=== PATIENT | male | born 1980 ===

== ENCOUNTER 2017-08-24 20:39 | Emergency (ER) | payer MEDICAID ==
[2017-08-24 20:57] VITALS: BP 147/76; PULSE 107; RESP 16; TEMP 97.9; O2SAT 98
--- NOTE | 2017-08-24 21:09 | ED PDOC ---
HPI: Back Time Seen by Provider: 08/24/17 20:42 Chief Complaint (Nursing): Back Pain Chief Complaint (Provider): Back Pain History Per: Patient History/Exam Limitations: no limitations Current Symptoms Are (Timing): Still Present Additional Complaint(s): 36 y/o male presents to the emergency department with a complaint of a constant lower middle back pain that radiates down to the right groin area, right testicular pain, and right leg numbness x5 days. 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 Reports taking Ibuprofen 600 mg at 6 am without the relief of symptoms. Denies history of kidney stones, experiencing similar symptoms in the past, abdominal pain, burning sensation or blood in urine, nausea, penile discharge, penile pain, fever, chills, and bowel or bladder incontinence. Past Medical History Reviewed: Historical Data, Nursing Documentation, Vital Signs Vital Signs: Last Vital Signs Temp 97.9 F 08/24/17 20:55 Pulse 107 H 08/24/17 20:55 Resp 16 08/24/17 20:55 BP 147/76 08/24/17 20:55 Pulse Ox 98 08/24/17 20:55 - Medical History PMH: Asthma - Surgical History Surgical History: No Surg Hx - Family History Family History: States: Unknown Family Hx - Social History Current smoker - smoking cessation education provided: No Alcohol: Social Drugs: Cannabis - Immunization History Hx Tetanus Toxoid Vaccination: No Hx Influenza Vaccination: No Hx Pneumococcal Vaccination: No - Home Medications Home Medications: Ambulatory Orders Medication Instructions Recorded Ibuprofen [Motrin] 600 mg PO Q6H #30 tab 12/14/16 Cyclobenzaprine [Cyclobenzaprine 10 mg PO TID #20 tab 08/24/17 HCl] Ibuprofen [Motrin] 600 mg PO Q6 #20 tab 08/24/17 - Allergies Allergies/Adverse Reactions: Allergies Allergy/AdvReac Type Severity Reaction Status Date / Time No Known Allergies Allergy Verified 12/14/16 05:00 Review of Systems ROS Statement: Except As Marked, All Systems Reviewed And Found Negative (As per HPI, otherwise negative) Constitutional: Negative for: Fever, Chills Gastrointestinal: Negative for: Abdominal Pain Genitourinary Male: Positive for: Other (Right groin region with right testicular pain). Negative for: Dysuria, Incontinence (No bowel or bladder incontinence ), Hematuria, Penile Discharge, Penile Pain Musculoskeletal: Positive for: Back Pain (Lower middle region) Neurological: Positive for: Numbness (of the right leg) Physical Exam - Reviewed Nursing Documentation Reviewed: Yes Vital Signs Reviewed: Yes - Physical Exam Appears: Positive for: Non-toxic, No Acute Distress Head Exam: Positive for: ATRAUMATIC, NORMAL INSPECTION, NORMOCEPHALIC Skin: Positive for: Normal Color, Warm, Dry Male Genital Exam: Positive for: normal genitalia, inguinal tenderness. Negative for: epididymal tenderness, hernia mass, lesions, scrotum tenderness (R ), testicular tenderness (R), urethral discharge Back: Positive for: Other (Lumbar midline tenderness and paraspinal tenderness) . Negative for: Normal Inspection Neurologic/Psych: Positive for: Alert, Oriented (x3) - Laboratory Results Result Diagrams: 08/24/17 21:41 08/24/17 21:41 - ECG O2 Sat by Pulse Oximetry: 98 (RA) Pulse Ox Interpretation: Normal Medical Decision Making Medical Decision Making: Time: 2104 Initial impression: Lower back pain and testicular pain rule out renal colic vs epididymitis vs back pain Initial plan: --Urinalysis --Toradol 30 mg --CBC w/ diff --CMP --Renal Protocol CT --Abd & Pelvis CT --Testicular US --Reevaluation IMPRESSION: Unremarkable exam. No evidence of testicular torsion or epididymitis. IMPRESSION: - No evidence of significant acute process on this unenhanced exam. There is no evidence of nephrolithiasis or obstructive uropathy. Pt doing well on re-eval. no complaints of pain. A,bulating with steady gait afebrile Scribe Attestation: Documented by Sonja Cleveland, acting as a scribe for Catherine Taylor PA-C Provider Scribe Attestation: All medical record entries made by the Scribe were at my direction and personally dictated by me. I have reviewed the chart and agree that the record accurately reflects my personal performance of the history, physical exam, medical decision making, and the department course for this patient. I have also personally directed, reviewed, and agree with the discharge instructions and disposition. Disposition - Clinical Impression Clinical Impression: Back pain - Patient ED Disposition Is Patient to be Admitted: No - Disposition Disposition: Routine/Home Disposition Time: 23:06 Condition: STABLE Prescriptions: Cyclobenzaprine [Cyclobenzaprine HCl] 10 mg PO TID #20 tab Ibuprofen [Motrin] 600 mg PO Q6 #20 tab Instructions: Back Pain (ED) Forms: [employer] (Georgian)
[2017-08-24 21:47] LABS: BASO # 0.1 K/uL (0.0-0.2); EOS # 0.2 K/uL (0.0-0.7); EOS % 2.1 % (0.0-4.0); HEMATOCRIT 48.1 % (35.0-51.0); LYMPH # 1.9 K/uL (1.0-4.3); LYMPH % 19.4 % (20.0-40.0); MEAN CELL VOLUME 91.8 fl (80.0-94.0); MEAN CORPUSCULAR HEMOGLOBIN 30.9 pg (27.0-31.0); MEAN CORPUSCULAR HGB CONC 33.6 g/dL (33.0-37.0); MEAN PLATELET VOLUME 7.8 fl (7.2-11.7); MONO # 0.9 K/uL (0.0-0.8); MONO % 9.6 % (0.0-10.0); NEUT # 6.7 K/uL (1.8-7.0); NEUT % 67.9 % (50.0-75.0); NRBC % 0.1 % (0.0-0.0); RED CELL DISTRIBUTION WIDTH 12.5 % (11.5-14.5); WHITE BLOOD COUNT 9.9 K/uL (4.8-10.8)
[2017-08-24 22:03] LABS: RBC URINE 4 /hpf (0-3); URINE BILIRUBIN NEGATIVE (NEGATIVE); URINE BLOOD NEGATIVE (NEGATIVE); URINE COLOR AMBER (YELLOW); URINE GLUCOSE (UA) NEG (Normal); URINE KETONE NEGATIVE (NEGATIVE); URINE LEUKOCYTE ESTERASE NEG Leu/uL (Negative); URINE PROTEIN NEGATIVE (NEGATIVE); WBC URINE < 1 /hpf (0-5)
[2017-08-24 22:04] LABS: ALB/GLOB RATIO 1.3 (1.0-2.1); ALKALINE PHOSPHATASE 84 U/L (38-126); ALT/SGPT 32 U/L (21-72); AST/SGOT 22 U/L (17-59); BILIRUBIN,TOTAL 0.5 mg/dl (0.2-1.3); BLOOD UREA NITROGEN 13 mg/dl (9-20); CALCIUM 9.4 mg/dL (8.4-10.2); CARBON DIOXIDE 28 mmol/L (22-30); CHLORIDE 106 mmol/L (98-107); GFR AFRICAN-AMERICAN > 60; GLUCOSE,RANDOM 114 mg/dL (75-110); SODIUM 142 mmol/l (132-148)
--- NOTE | 2017-08-24 22:32 | CT ---
EXAM: CT Abdomen and Pelvis Without Intravenous Contrast EXAM DATE/TIME: 08/24/2017 9:13 PM CLINICAL HISTORY: 36 years old, male; Pain; Other: Lower back pain; Additional info: R/O renal stone. Sent phy. Doc. TECHNIQUE: Axial computed tomography images of the abdomen and pelvis without intravenous contrast. All CT scans at this facility use one or more dose reduction techniques, viz.: automated exposure control; ma/kV adjustment per patient size (including targeted exams where dose is matched to indication; i.e. head); or iterative reconstruction technique. Coronal and sagittal reformatted images were created and reviewed. COMPARISON: No relevant prior studies available. FINDINGS: LOWER THORAX: No infiltrate seen in the lung bases. ABDOMEN: LIVER: No acute abnormality of the liver identified. GALLBLADDER AND BILE DUCTS: No CT evidence of acute cholecystitis. No evidence of significant biliary ductal dilatation. PANCREAS: No CT evidence of acute pancreatitis. SPLEEN: No acute abnormality of the spleen identified. ADRENALS: No acute abnormality of the adrenal glands identified. KIDNEYS AND URETERS: Low density lesion in the right kidney, most likely a cyst. This measures 1.6 cm No renal stones, hydronephrosis, or hydroureter seen. STOMACH AND BOWEL: No acute abnormality of the stomach, small bowel or colon identified. No evidence of bowel obstruction. APPENDIX: Appendix is seen, and is within normal limits in appearance. PELVIS: BLADDER: No acute abnormality of the bladder identified. REPRODUCTIVE: No acute abnormality of the reproductive organs is seen. ABDOMEN and PELVIS: INTRAPERITONEAL SPACE: No evidence of free intraperitoneal air or fluid. BONES/JOINTS: No acute fractures or other acute bony abnormality noted. SOFT TISSUES: No acute abnormality of the visualized soft tissues is seen. VASCULATURE: No evidence of abdominal aortic aneurysm. No evidence of periaortic hemorrhage. LYMPH NODES: No evidence of diffuse lymphadenopathy. IMPRESSION: - No evidence of significant acute process on this unenhanced exam. There is no evidence of nephrolithiasis or obstructive uropathy. - See above for remaining findings.
--- NOTE | 2017-08-24 22:37 | US ---
EXAM: US Scrotum EXAM DATE/TIME: 08/24/2017 9:06 PM CLINICAL HISTORY: 36 years old, male; Pain; Scrotum pain; Additional info: R testicular pain TECHNIQUE: Real-time ultrasound of the scrotum with color Doppler and image documentation. COMPARISON: No relevant prior studies available. FINDINGS: Right testicle: Within normal limits in appearance. Measures 4.5 x 2.1 x 3.4 cm. Flow seen in the right testicle on color and Doppler imaging, with no evidence of torsion. Right epididymis: Within normal limits in appearance. Head measures 1 x 0.6 cm. Left testicle: Within normal limits in appearance. Measures 4.3 x 2.0 x 3.5 cm. Flow seen in the left testicle on color and Doppler imaging, with no evidence of torsion. Left epididymis: Within normal limits in appearance. Head measures 1.1 x 0.6 cm. Hydrocoele: None seen. Varicocele: None seen. IMPRESSION: Unremarkable exam. No evidence of testicular torsion or epididymitis.
[2017-08-24] MEDS: Oxycodone/Acetaminophen 5/325 mg Tab PO STA (22:41)
== END 2017-08-24 22:58 | disposition home or self-care (01) ==
LOC: H.ER 20:39
DX: N50.811 Right testicular pain (principal); N50.82 Scrotal pain
CPT/HCPCS: 74176; 80053; 81003; 85025; 93975; 96374; 99282; J1885

== ENCOUNTER 2017-10-27 14:35 | Emergency (ER) | payer SELFPAY ==
[2017-10-27 14:42] VITALS: RESP 18; O2SAT 99
--- NOTE | 2017-10-27 14:58 | ED PDOC ---
HPI: Trauma/Fall - HPI Time Seen by Provider: 10/27/17 14:41 Chief Complaint (Nursing): Lower Extremity Problem/Injury Chief Complaint (Provider): Right Ankle Pain, Lower Back Pain History Per: Patient History/Exam Limitations: no limitations Onset/Duration Of Symptoms: Hrs (x 1) Injury Occurred (Timing): Hours Ago: (1) Additional Complaint(s): Hardik is a 37 y/o male who presents to the ED complaining of right ankle pain and back pain after falling off a truck at work 1 hour ago. Patient denies any other complaints or injury. He states he heard a "pop" in his right foot. No head injury or loss of consciousness sustained. Patient's arrives via ambulance. PMD: None Past Medical History Reviewed: Historical Data, Nursing Documentation, Vital Signs Vital Signs: Last Vital Signs Temp 97.6 F 10/27/17 14:40 Pulse 92 H 10/27/17 14:40 Resp 18 10/27/17 14:40 BP 142/102 H 10/27/17 14:40 Pulse Ox 99 10/27/17 14:40 - Medical History PMH: Asthma - Surgical History Surgical History: No Surg Hx - Family History Family History: States: No Known Family Hx - Living Arrangements Living Arrangements: With Family - Social History Current smoker - smoking cessation education provided: Yes Alcohol: None Drugs: Denies - Home Medications Home Medications: Ambulatory Orders Medication Instructions Recorded Ibuprofen [Motrin] 600 mg PO Q6H #30 tab 12/14/16 Cyclobenzaprine [Cyclobenzaprine 10 mg PO TID #20 tab 08/24/17 HCl] Ibuprofen [Motrin] 600 mg PO Q6 #20 tab 08/24/17 Ibuprofen [Motrin Tab] 800 mg PO Q8 PRN #20 tab 10/27/17 - Allergies Allergies/Adverse Reactions: Allergies Allergy/AdvReac Type Severity Reaction Status Date / Time No Known Allergies Allergy Verified 12/14/16 05:00 Review of Systems ROS Statement: Except As Marked, All Systems Reviewed And Found Negative Musculoskeletal: Positive for: Back Pain (lower), Other (right foot and ankle pain) Neurological: Positive for: Other (denies any head injury or LOC) Physical Exam - Reviewed Nursing Documentation Reviewed: Yes Vital Signs Reviewed: Yes - Physical Exam Appears: Positive for: Well, Non-toxic, No Acute Distress Head Exam: Positive for: ATRAUMATIC Skin: Positive for: Normal Color, Warm. Negative for: Rash Neck: Positive for: Normal Cardiovascular/Chest: Positive for: Regular Rate, Rhythm Respiratory: Positive for: Normal Breath Sounds Back: Positive for: Vertebral Tenderness (lumbar). Negative for: L CVA Tenderness, R CVA Tenderness, Decreased ROM, Muscle Spasm Extremity: Positive for: Other (tenderness and swelling right lateral malleolus and dorsolateral aspect of right foot with decreased ROM, no bony deformity noted, normal distal sensation, normal distal pulses) Neurologic/Psych: Positive for: Alert, Oriented. Negative for: Motor/Sensory Deficits - ECG O2 Sat by Pulse Oximetry: 99 (RA) Pulse Ox Interpretation: Normal - Other Rad L/S Spine x-ray X-Ray: Interpreted by Me, Viewed By Me X-Ray Interpretation: no fx, no dis Right foot and ankle x-ray X-Ray: Interpreted by Me, Viewed By Me X-Ray Interpretation: no fx, no dis Medical Decision Making Medical Decision Making: Time: 14:55 Initial Impression: 37 y/o male with right ankle pain, back pain status post fall Initial Plan: --Tylenol --Motrin --XR Ankle Right --XR Back Patient is aware of x-ray results. All questions answered. Crutches declined. See procedure note. Prescription given for Motrin. Advised podiatry clinic follow-up, referral provided. Repeat blood pressure prior to discharge markedly improved at 135/86. Scribe Attestation: Documented by Quang Gill, acting as a scribe for Catherine Negron PA-C Provider Scribe Attestation: All medical record entries made by the Scribe were at my direction and personally dictated by me. I have reviewed the chart and agree that the record accurately reflects my personal performance of the history, physical exam, medical decision making, and the department course for this patient. I have also personally directed, reviewed, and agree with the discharge instructions and disposition. Procedures - Splinting Location: right ankle Pre-Made Type: paulina wrap, aircast, ortho shoe Pre-Proc Neuro Vasc Exam: normal Post-Proc Neuro Vasc Exam: normal Disposition - Clinical Impression Clinical Impression: Ankle sprain and strain, Back strain - Patient ED Disposition Is Patient to be Admitted: No Counseled Patient/Family Regarding: Studies Performed, Diagnosis, Need For Followup, Rx Given, Smoking Cessation - Disposition Referrals: Earnest Carrion III, MD [Staff Provider] - Disposition: Routine/Home Disposition Time: 16:33 Condition: STABLE Additional Instructions: Take prescription medicines directed as needed for pain. Ice, rest and elevate affected area. Follow-up with podiatry clinic in 2-3 days. Prescriptions: Ibuprofen [Motrin Tab] 800 mg PO Q8 PRN #20 tab PRN Reason: Pain, Moderate (4-7) Instructions: Muscle Strain (DC), Low Back Pain (DC), Back Exercises, Ankle Sprain Forms: [employer] (Somali), [facility] ED School/Work Excuse
--- NOTE | 2017-10-27 15:21 | RAD ---
PROCEDURE: Radiographs of the Lumbar Spine. HISTORY: trauma COMPARISON: No prior. FINDINGS: BONES: Normal alignment. No listhesis. No fracture. DISC SPACES: Unremarkable. OTHER FINDINGS: None. IMPRESSION: Unremarkable radiographs of the lumbar spine.
--- NOTE | 2017-10-27 15:56 | RAD ---
PROCEDURE: Radiographs of the right great toe. TECHNIQUE:: AP radiograph of the right foot, with oblique and lateral view of the right great toe. COMPARISON: None. FINDINGS: BONES: Incidental benign-appearing bone island distal tibia No fracture. JOINTS: Normal SOFT TISSUES: Normal. OTHER FINDINGS: None. IMPRESSION: Normal right great toe radiographs.
--- NOTE | 2017-10-27 15:57 | RAD ---
PROCEDURE: Right Ankle Radiographs. HISTORY: trauma COMPARISON: None FINDINGS: BONES: Normal. No fracture. JOINTS: Normal. No osteoarthritis. Ankle mortise maintained. Talar dome intact SOFT TISSUES: Normal. OTHER FINDINGS: None. IMPRESSION: Normal right ankle radiographs.
[2017-10-27 16:47] VITALS: BP 135/86; PULSE 85; TEMP 98
== END 2017-10-27 16:48 | disposition home or self-care (01) ==
LOC: H.ER 14:35
DX: S39.012A Strain of muscle, fascia and tendon of lower back, initial encounter (principal); S93.401A Sprain of unspecified ligament of right ankle, initial encounter; F17.200 Nicotine dependence, unspecified, uncomplicated; J45.909 Unspecified asthma, uncomplicated; V87.8XXA Person injured in other specified noncollision transport accidents involving motor vehicle (traffic), initial encounter

== ENCOUNTER 2018-07-30 22:34 | Emergency (ER) | payer SELFPAY ==
[2018-07-30 22:44] VITALS: RESP 16
[2018-07-30] MEDS ORDERED: Oxycodone/Acetaminophen 5/325 mg Tab PO STA (23:21)
--- NOTE | 2018-07-30 23:24 | ED PDOC ---
HPI: Dental Pain/Injury Time Seen by Provider: 07/30/18 22:58 Chief Complaint (Nursing): Dental Pain Chief Complaint (Provider): Left lower dental pain, swelling History Per: Patient History/Exam Limitations: no limitations Onset/Duration Of Symptoms: Days Current Symptoms Are (Timing): Still Present Additional Complaint(s): 37 yo male with nhx asthma presents for evaluation of right lower facial swelling and dental pain. PT states that he was seen by dentist and told he needs a root canal. Pt was given motrin and Pen VK Past Medical History Reviewed: Historical Data, Nursing Documentation, Vital Signs Vital Signs: Last Vital Signs Temp 97.7 F 07/30/18 22:42 Pulse 96 H 07/30/18 22:42 Resp 16 07/30/18 22:42 BP 144/88 07/30/18 22:42 Pulse Ox 97 07/30/18 22:42 - Medical History PMH: Asthma - Family History Family History: States: Unknown Family Hx - Immunization History Hx Tetanus Toxoid Vaccination: No Hx Influenza Vaccination: No Hx Pneumococcal Vaccination: No - Home Medications Home Medications: Ambulatory Orders Medication Instructions Recorded Ibuprofen [Motrin] 600 mg PO Q6H #30 tab 12/14/16 Cyclobenzaprine [Cyclobenzaprine 10 mg PO TID #20 tab 08/24/17 HCl] Ibuprofen [Motrin] 600 mg PO Q6 #20 tab 08/24/17 Ibuprofen [Motrin Tab] 800 mg PO Q8 PRN #20 tab 10/27/17 Amoxicillin/Clavulanate [Augmentin 1 tab PO BID #20 tab 07/30/18 875 MG-125 MG] oxyCODONE/Acetaminophen [Percocet 1 ea PO Q6H PRN #15 tab 07/30/18 5/325 mg Tab] - Allergies Allergies/Adverse Reactions: Allergies Allergy/AdvReac Type Severity Reaction Status Date / Time No Known Allergies Allergy Verified 07/30/18 22:41 Review of Systems ROS Statement: Except As Marked, All Systems Reviewed And Found Negative Constitutional: Negative for: Fever, Chills ENT: Positive for: Other (Dental pain). Negative for: Ear Pain Skin: Negative for: Rash Physical Exam - Reviewed Nursing Documentation Reviewed: Yes Vital Signs Reviewed: Yes - Physical Exam Appears: Positive for: Well, Non-toxic, No Acute Distress Head Exam: Positive for: ATRAUMATIC, NORMAL INSPECTION, NORMOCEPHALIC Skin: Positive for: Normal Color, Warm, DRY Eye Exam: Positive for: Normal appearance ENT: Positive for: Normal ENT Inspection, Other ((+) left facial swelling, no abscess formation) Neck: Positive for: Normal, Painless ROM Cardiovascular/Chest: Negative for: Bradycardia, Tachycardia Respiratory: Negative for: Accessory Muscle Use, Respiratory Distress Back: Positive for: Normal Inspection Extremity: Positive for: Normal ROM. Negative for: Tenderness, Deformity Neurologic/Psych: Positive for: Alert. Negative for: Gait - ECG O2 Sat by Pulse Oximetry: 97 Pulse Ox Interpretation: Normal Medical Decision Making Medical Decision Making: Discussed f.u with dentist. Pt states his follow-up is scheduled for 08/03 Disposition - Clinical Impression Clinical Impression: Pain, dental - Patient ED Disposition Is Patient to be Admitted: No Counseled Patient/Family Regarding: Diagnosis, Need For Followup, Rx Given - Disposition Disposition: Routine/Home Disposition Time: 23:30 Condition: GOOD Prescriptions: Amoxicillin/Clavulanate [Augmentin 875 MG-125 MG] 1 tab PO BID #20 tab oxyCODONE/Acetaminophen [Percocet 5/325 mg Tab] 1 ea PO Q6H PRN #15 tab PRN Reason: Pain, Severe (8-10) Instructions: Dental Pain (DC)
[2018-07-30] MEDS ORDERED: Oxycodone/Acetaminophen 5/325 mg Tab ONE (23:38)
[2018-07-31 00:03] VITALS: BP 136/99; PULSE 79; TEMP 98; O2SAT 99
== END 2018-07-31 | disposition home or self-care (01) ==
LOC: H.ER 22:34
DX: K08.89 Other specified disorders of teeth and supporting structures (principal); J45.909 Unspecified asthma, uncomplicated

== ENCOUNTER 2018-11-01 11:33 | Emergency (ER) | payer SELFPAY ==
--- NOTE | 2018-11-01 12:35 | ED PDOC ---
Upper Extremity Pain/Injury Time Seen by Provider: 11/01/18 11:52 Chief Complaint (Nursing): Finger,Hand,&Wrist Chief Complaint (Provider): Finger,Hand,&Wrist History Per: Patient History/Exam Limitations: no limitations Onset/Duration Of Symptoms: Hrs (@ 5am) Additional Complaint(s): Hardik Sprague is a 38 year old male with a past medical history of asthma, who presents to the emergency department after sustaining a fall injury at 5am today. Patient states he slipped and fell on ice and tried to catch himself with his hand. He states he has pain to the right hand below the thumb. Patient has taken Motrin without relief. Of note, patient's tendon was removed from first digit prior, and he has always been unable to move his thumb. PMD: no provider Past Medical History Reviewed: Historical Data, Nursing Documentation, Vital Signs Vital Signs: Last Vital Signs Temp 98.7 F 11/01/18 11:37 Pulse 105 H 11/01/18 11:37 Resp 16 11/01/18 11:37 BP 147/97 H 11/01/18 11:37 Pulse Ox 96 11/01/18 11:37 - Medical History PMH: Asthma - Surgical History Surgical History: No Surg Hx - Family History Family History: States: Unknown Family Hx - Immunization History Hx Tetanus Toxoid Vaccination: No Hx Influenza Vaccination: No Hx Pneumococcal Vaccination: No - Home Medications Home Medications: Ambulatory Orders Medication Instructions Recorded Ibuprofen [Motrin] 600 mg PO Q6H #30 tab 12/14/16 Cyclobenzaprine [Cyclobenzaprine 10 mg PO TID #20 tab 08/24/17 HCl] Ibuprofen [Motrin] 600 mg PO Q6 #20 tab 08/24/17 Ibuprofen [Motrin Tab] 800 mg PO Q8 PRN #20 tab 10/27/17 Amoxicillin/Clavulanate [Augmentin 1 tab PO BID #20 tab 07/30/18 875 MG-125 MG] oxyCODONE/Acetaminophen [Percocet 1 ea PO Q6H PRN #15 tab 07/30/18 5/325 mg Tab] Acetaminophen with Codeine 1 tab PO Q6H PRN #10 tab 11/01/18 [Tylenol with Codeine No. 3 300 mg-30 mg] Naproxen [Naprosyn] 500 mg PO BID PRN #15 tablet 11/01/18 - Allergies Allergies/Adverse Reactions: Allergies Allergy/AdvReac Type Severity Reaction Status Date / Time No Known Allergies Allergy Verified 11/01/18 11:36 Review of Systems ROS Statement: Except As Marked, All Systems Reviewed And Found Negative Musculoskeletal: Positive for: Hand Pain (right hand pain) Physical Exam - Reviewed Nursing Documentation Reviewed: Yes Vital Signs Reviewed: Yes - Physical Exam Appears: Positive for: Non-toxic, No Acute Distress Head Exam: Positive for: ATRAUMATIC, NORMOCEPHALIC Skin: Positive for: Normal Color, Warm, Dry Eye Exam: Positive for: Normal appearance Cardiovascular/Chest: Positive for: Regular Rate, Rhythm. Negative for: Murmur Respiratory: Positive for: Normal Breath Sounds. Negative for: Respiratory Distress Extremity: Positive for: Tenderness (tender to the right lateral hand between the area of wrist and first MCP joint; (-) wrist tenderness; (-) snuff box tenderness; ), Swelling. Negative for: Normal ROM (decreased ROM secondary to pain), Other ( ecchymosis ) - ECG O2 Sat by Pulse Oximetry: 96 (RA) Pulse Ox Interpretation: Normal Medical Decision Making Medical Decision Making: Time: 1208 Impression: Right hand injury Plan: --Tylenol 650 mg PO --Right hand xray 3 views --Right wrist xray 3 views Time: 1232 Wrist xray FINDINGS: BONES: There is an acute oblique impacted mildly displaced fracture in the base of the 1st metacarpal. There is also question of nondisplaced fractures in the trapezium and trapezoid. 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 The remaining joint spaces are preserved. The radiocarpal joint is normal. SOFT TISSUES: Soft tissue swelling overlying the 1st metacarpal. OTHER FINDINGS: None. IMPRESSION: Acute oblique impacted mildly displaced fracture in the base of the 1st metacarpal with overlying soft tissue swelling. Question of acute nondisplaced fractures in the trapezium and trapezoid. The final report is tagged to the PA review folder. Time: 1240 Hand x-ray FINDINGS: BONES: There is an acute oblique impacted mildly displaced fracture in the base of the 1st metacarpal. There is also an acute nondisplaced fracture in the trapezium. Bone alignment and mineralization are normal. JOINTS: The joint spaces are preserved. SOFT TISSUES: Mild soft tissue swelling overlying the 1st metacarpal. OTHER FINDINGS: None. IMPRESSION: Acute impacted mildly displaced fracture in the base of the 1st metacarpal. No dislocation. Suspect acute nondisplaced fracture in the trapezium. The final report is tagged to the PA review folder. Time: [address] Chang (Hand surgery), images reviewed, recommends spica splint, follow-up in office within 1 week, face sheet faxed. Scribe Attestation: Documented by Simone Vazquez, acting as a scribe for Kalli Mcghee MD. Provider Scribe Attestation: All medical record entries made by the Scribe were at my direction and personally dictated by me. I have reviewed the chart and agree that the record accurately reflects my personal performance of the history, physical exam, medical decision making, and the department course for this patient. I have also personally directed, reviewed, and agree with the discharge instructions and disposition. Disposition - Clinical Impression Clinical Impression: Corbin's fracture - Disposition Referrals: Vy Chang MD [Medical Doctor] - Disposition: Routine/Home Disposition Time: 13:10 Condition: STABLE Prescriptions: Acetaminophen with Codeine [Tylenol with Codeine No. 3 300 mg-30 mg] 1 tab PO Q6H PRN #10 tab PRN Reason: Pain, Severe (8-10) Naproxen [Naprosyn] 500 mg PO BID PRN #15 tablet PRN Reason: Pain, Moderate (4-7) Instructions: Hand Fracture Forms: [employer] (Togolese)
--- NOTE | 2018-11-01 12:40 | RAD ---
Date of service: 11/01/2018 PROCEDURE: Right Wrist Radiographs. HISTORY: Lateral hand pain COMPARISON: None. FINDINGS: BONES: There is an acute oblique impacted mildly displaced fracture in the base of the 1st metacarpal. There is also question of nondisplaced fractures in the trapezium and trapezoid. 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 The remaining joint spaces are preserved. The radiocarpal joint is normal. SOFT TISSUES: Soft tissue swelling overlying the 1st metacarpal. OTHER FINDINGS: None. IMPRESSION: Acute oblique impacted mildly displaced fracture in the base of the 1st metacarpal with overlying soft tissue swelling. Question of acute nondisplaced fractures in the trapezium and trapezoid. The final report is tagged to the PA review folder.
--- NOTE | 2018-11-01 12:44 | RAD ---
Date of service: 11/01/2018 PROCEDURE: <HAND RIGHT 3 VIEWS> HISTORY: Lateral hand pain COMPARISON: None. FINDINGS: BONES: There is an acute oblique impacted mildly displaced fracture in the base of the 1st metacarpal. There is also an acute nondisplaced fracture in the trapezium. Bone alignment and mineralization are normal. JOINTS: The joint spaces are preserved. SOFT TISSUES: Mild soft tissue swelling overlying the 1st metacarpal. OTHER FINDINGS: None. IMPRESSION: Acute impacted mildly displaced fracture in the base of the 1st metacarpal. No dislocation. Suspect acute nondisplaced fracture in the trapezium. The final report is tagged to the PA review folder.
[2018-11-01 15:26] VITALS: BP 128/70; PULSE 77; RESP 18; TEMP 98; O2SAT 100
== END 2018-11-01 13:30 | disposition home or self-care (01) ==
LOC: H.ER 11:33
DX: S62.211A Bennett's fracture, right hand, initial encounter for closed fracture (principal); W00.0XXA Fall on same level due to ice and snow, initial encounter; J45.909 Unspecified asthma, uncomplicated

== ENCOUNTER 2018-11-09 06:06 | Day surgery (SDC) | payer SELFPAY ==
[2018-11-08 11:53] VITALS: BMI 31.1
[2018-11-09] MEDS ORDERED: Lactated Ringer's 1,000 ML IV ONE (07:00)
[2018-11-09] MEDS ORDERED: Propofol 10 mg/ml Inj (20 ML) ONE (07:53)
[2018-11-09] MEDS ORDERED: Midazolam 2 MG/2 ML VIAL ONE (07:53)
[2018-11-09] MEDS ORDERED: Lidocaine 2% MPF (5 ml) Inj ONE (07:54)
[2018-11-09] MEDS ORDERED: Lactated Ringer's 1,000 ML IV SCH (10:00)
[2018-11-09] MEDS: HYDROmorphone 0.5 mg/0.5 ml ISec IVP PRN ×2 (10:15→10:25)
[2018-11-09] MEDS ORDERED: Morphine 4 MG/ML VIAL IVP PRN (10:27)
[2018-11-09] MEDS ORDERED: Oxycodone/Acetaminophen 5/325 mg Tab PO PRN (10:27)
[2018-11-09] MEDS ORDERED: Oxycodone/Acetaminophen 5/325 mg Tab PO ONE (13:08)
[2018-11-09 16:10] VITALS: BP 138/88; PULSE 90; RESP 20; TEMP 98.6; O2SAT 96
--- NOTE | 2018-11-10 15:56 | PCM.OP ---
Operative Report - Operative Report Date of Surgery/Procedure: 11/09/18 Time of Surgery/Procedure: 07:30 Surgeon: Vy Chang MD Gunner'S Mate G: Geri Moulton Anesthesia/Sedation: General Pre-Operative Diagnosis: Right Bennetts fracture Post-Operative Diagnosis: Right Bennetts fracture Indication for Surgery: 38 yo M with Right Bennettf fracture sustained after a fall on ice. Treatment options discussed with patient including surgery. Due to patients age and the concern for thumb carpometacarpal arthritis, he would like to proceed with operative treatment. Risks of surgery including infection, pain, scarring, swelling, adhesions, stiffness, malunion, nonunion, arthritis, damage to surrounding structures, and need for future procedures reviewed. Consent signed.Post-op pain plan and risk of narcotics reviewed. Operative Findings: Right Bennetts fracture Procedure/Operation Description: The patient was identified in the holding area. His right hand was marked. He was brought into the operating room. The patient was laid supine on the operating room table, and was given anesthesia. The patient was administered 2 grams Ancef. The right arm was then placed in a tourniquet and prepped and draped in a usual sterile fashion. Closed reduction was attempted, however due to the fractures unstable nature, the ability to maintain the reduced position proved difficult, so the decision to perform an open procedure was made. Using an Esmarch, the arm was exsanguinated and tourniquet inflated to 250 mm of pressure for 46 minutes. A Mott approach was used. A 4.0 cm incision was made along the border of the thumb glabrous and nonglabrous skin The superficial radial nerve was not identified in the field. The thenar musculature was elevated and the capsule exposed and incised longitudinally. With the aid of a [place] elevator, the metacarpal was reduced to the volar-ulnar fragment. Red uction was confirmed with X-rays. Two 0.045-in k-wires were placed from the thumb metacarpal shaft into the fracture fragment. Another 0.045-inch K wire was placed from the thumb metacarpal shaft into the trapezium. A fourth 0.045- inch k-wire was placed from the thumb metacarpal shaft into the index metacarpal shaft.Final x-rays were taken to verify position. The wires were bent, trimmed, and capped. The bone and soft tissue were irrigated with saline.The joint capsule was closed with 3.0 Vicryl. The tourniquet was deflated and hemostasis was confirmed.The dermis and skin were closed with 4.0 monocryl in a subcuticular fashion. Skin glue was placed over the incision. A sterile dressing was applied and the patient was then placed in thumb spica splint. The patient tolerated the procedure well, was transferred to a stretcher, and brought to recovery in stable condition. Estimated Blood Loss: negligible Complications: none Discharge & Condition: stable to home
== END 2018-11-09 13:40 | disposition home or self-care (01) ==
LOC: H.OPSURG 06:06
PROVIDERS: ATTEND Dentist Pediatric Dentistry
DX: S62.211A Bennett's fracture, right hand, initial encounter for closed fracture (principal); J45.909 Unspecified asthma, uncomplicated; F17.210 Nicotine dependence, cigarettes, uncomplicated; W00.0XXA Fall on same level due to ice and snow, initial encounter
CPT/HCPCS: 26665; C1769; J0690; J1170; J1885; J2250; J2405; J2704; J2765; J3010; J7120